=== PATIENT | female | born 1965 | race Caucasian/White ===

== ENCOUNTER 2021-03-28 09:08 | Outpatient (REF) | payer BC, SELFPAY ==
[2021-03-28 15:47] LABS: Hemoglobin A1C 7.3 % (<5.7)
[2021-03-28 15:57] LABS: ALT 38 U/L (14-59); AST 28 U/L (15-37); Albumin 3.7 g/dL (3.4-5.0); Alkaline Phosphatase 55 U/L (46-116); Anion Gap 9.9 mmol/L (3-11); BUN 13 mg/dL (7-18); Bilirubin, Total 0.6 mg/dL (0.2-1.0); CO2 29.1 mmol/L (21.0-32.0); CREATININE 0.9 mg/dL (0.55-1.02); Calcium 8.5 mg/dL (8.5-10.1); Chloride 105 mmol/L (98-107); Glucose 181 mg/dL (74-106); Potassium 3.5 mmol/L (3.5-5.1); Sodium 144 mmol/L (136-145); Total Protein 7.5 g/dL (6.4-8.2)
[2021-03-28 16:30] LABS: Calculated LDL 44 mg/dL (<100); Cholesterol 134 mg/dL (<200); HDL Cholesterol 37 mg/dL (40-60); Triglyceride 268 mg/dL (<150)
== END 2021-03-28 09:09 | disposition home or self-care (01) ==
LOC: NCHCN 09:08
PROVIDERS: PCP Internal Medicine; Visit Provider Physician Assistant
DX: I10 Essential (primary) hypertension (principal); E11.319 Type 2 diabetes mellitus with unspecified diabetic retinopathy without macular edema
CPT/HCPCS: 80053; 80061; 82043; 82570; 83036

== ENCOUNTER 2021-07-04 14:54 | Outpatient (REF) | payer BC, SELFPAY ==
[2021-07-04 21:28] LABS: COMMENT (LAB VIEW ONLY) 144.55 mg/dL; Microalb ug/mg Crea 34.5 ug/mg Cr
== END 2021-07-04 14:55 | disposition home or self-care (01) ==
LOC: NCHCN 14:54
PROVIDERS: PCP Internal Medicine; Visit Provider Physician Assistant
DX: E11.9 Type 2 diabetes mellitus without complications (principal)
CPT/HCPCS: 82043; 82570

== ENCOUNTER 2022-04-03 08:38 | Outpatient (REF) | payer BC, SELFPAY ==
[2022-04-03 20:58] LABS: BUN 17 mg/dL (7-18); Calcium 8.9 mg/dL (8.5-10.1); Chloride 103 mmol/L (98-107); Estimated GFR 56.75 (mL/min/1.73m2); Glucose 178 mg/dL (74-106); Potassium 3.2 mmol/L (3.5-5.1); Sodium 142 mmol/L (136-145)
== END 2022-04-03 08:39 | disposition home or self-care (01) ==
LOC: NCHCN 08:38
PROVIDERS: PCP Internal Medicine; Visit Provider Physician Assistant
DX: I10 Essential (primary) hypertension (principal)
CPT/HCPCS: 80048

== ENCOUNTER 2022-05-08 15:08 | Outpatient (REF) | payer BC, SELFPAY ==
[2022-05-08 21:26] LABS: Potassium 3.5 mmol/L (3.5-5.1)
== END 2022-05-08 15:09 | disposition home or self-care (01) ==
LOC: NCHCN 15:08
PROVIDERS: PCP Internal Medicine; Visit Provider Physician Assistant
DX: E87.6 Hypokalemia (principal)
CPT/HCPCS: 84132

== ENCOUNTER 2023-04-08 10:17 | Outpatient (REF) | payer BC, SELFPAY ==
[2023-04-08 19:09] LABS: HCT 41.9 % (36.0-46.0); HGB 13.9 g/dL (11.2-15.7); MCHC 33.2 % (32.0-36.0); MCV 91 fL (80-95); MPV 10.3 fL (8.0-11.0); Platelet Count 212 10^3/uL (130-400); RBC 4.63 10^6/uL (3.93-5.22); RDW 13.1 % (11.7-14.6); RDW-SD 43.3 fL; WBC 7.24 10^3/uL (4.4-10.8)
[2023-04-08 19:20] LABS: ALT 29 U/L (14-59); AST 24 U/L (15-37); Albumin 3.9 g/dL (3.4-5.0); Alkaline Phosphatase 47 U/L (46-116); Anion Gap 9.6 mmol/L (3-11); BUN 17 mg/dL (7-18); Bilirubin, Total 0.6 mg/dL (0.2-1.0); CO2 29.4 mmol/L (21.0-32.0); Calcium 8.5 mg/dL (8.5-10.1); Chloride 105 mmol/L (98-107); Estimated GFR 64.49 (mL/min/1.73m2); Glucose 189 mg/dL (74-106); Potassium 3.4 mmol/L (3.5-5.1); Sodium 144 mmol/L (136-145); TSH (W/Ref FT4) 3.65 uIU/mL (0.36-3.74)
== END 2023-04-08 10:18 | disposition home or self-care (01) ==
LOC: NCHCN 10:17
PROVIDERS: PCP Internal Medicine; Visit Provider Physician Assistant
DX: I10 Essential (primary) hypertension (principal); R00.2 Palpitations; E11.9 Type 2 diabetes mellitus without complications; Z00.00 Encounter for general adult medical examination without abnormal findings
CPT/HCPCS: 80053; 85027; 84443

== ENCOUNTER 2024-01-15 10:14 | Outpatient (REF) | payer BC, SELFPAY ==
[2024-01-15 19:03] LABS: ALT 42 U/L (14-59); AST 32 U/L (15-37); Albumin 3.6 g/dL (3.4-5.0); Alkaline Phosphatase 57 U/L (46-116); Anion Gap 7.7 mmol/L (3-11); BUN 17 mg/dL (7-18); Bilirubin, Total 0.8 mg/dL (0.2-1.0); CO2 29.3 mmol/L (21.0-32.0); Chloride 104 mmol/L (98-107); Cholesterol 216 mg/dL (<200); Estimated GFR 64.09 (mL/min/1.73m2); Glucose 165 mg/dL (74-106); HDL Cholesterol 41 mg/dL (40-60); Potassium 3.4 mmol/L (3.5-5.1); Sodium 141 mmol/L (136-145); Total Protein 7.8 g/dL (6.4-8.2); Triglyceride 458 mg/dL (<150)
[2024-01-15 19:20] LABS: COMMENT (LAB VIEW ONLY) 14.71 mg/dL; Microalb ug/mg Crea 61.9 ug/mg Cr
[2024-01-15 19:41] LABS: LDL CHOLESTEROL 78 mg/dL (<100)
== END 2024-01-15 10:15 | disposition home or self-care (01) ==
LOC: NCHCN 10:14
PROVIDERS: PCP Internal Medicine; Referring Provider Physician Assistant; Visit Provider Physician Assistant
DX: E11.9 Type 2 diabetes mellitus without complications (principal); E78.5 Hyperlipidemia, unspecified
CPT/HCPCS: 80053; 80061; 83721; 82043; 82570

== ENCOUNTER 2025-01-26 09:24 | Outpatient (REF) | payer BC, SELFPAY ==
[2025-01-26 20:06] LABS: ALT 28 U/L (14-59); AST 23 U/L (15-37); Albumin 3.8 g/dL (3.4-5.0); Alkaline Phosphatase 57 U/L (46-116); Anion Gap 8.5 mmol/L (3-11); BUN 21 mg/dL (7-18); Bilirubin, Total 0.66 mg/dL (0.2-1.0); CO2 28.5 mmol/L (21.0-32.0); Calcium 8.9 mg/dL (8.5-10.1); Chloride 106 mmol/L (98-107); Glucose 171 mg/dL (74-106); Potassium 3.5 mmol/L (3.5-5.1); Sodium 143 mmol/L (136-145); Total Protein 7.8 g/dL (6.4-8.2)
[2025-01-26 20:36] LABS: COMMENT (LAB VIEW ONLY) 96.06 mg/dL; Microalb ug/mg Crea 51.3 ug/mg Cr
== END 2025-01-26 09:25 | disposition home or self-care (01) ==
LOC: NCHCN 09:24
PROVIDERS: PCP Internal Medicine; Visit Provider Physician Assistant
DX: E11.9 Type 2 diabetes mellitus without complications (principal)
CPT/HCPCS: 80053; 82043; 82570

== ENCOUNTER 2025-08-10 19:40 | Outpatient (REF) | payer BC, SELFPAY ==
[2025-08-10 21:43] LABS: Abs Immature Grans 0.12 10^3/uL (0.0-0.06); HCT 38.7 % (36.0-46.0); HGB 12.4 g/dL (11.2-15.7); Immature Grans % 0.6 %; MCH 27.9 pg (27.0-33.0); MCHC 32.0 % (32.0-36.0); MCV 87 fL (80-95); MPV 10.7 fL (8.0-11.0); Platelet Count 157 10^3/uL (130-400); RBC 4.44 10^6/uL (3.93-5.22); RDW 14.4 % (11.7-14.6); RDW-SD 46.1 fL; WBC 18.93 10^3/uL (4.4-10.8)
[2025-08-10 22:17] LABS: WBC >50 HPF (0-5)
[2025-08-10 22:47] LABS: ALT 27 U/L (14-59); AST 16 U/L (15-37); Albumin 3.5 g/dL (3.4-5.0); Alkaline Phosphatase 54 U/L (46-116); Anion Gap 11.6 mmol/L (3-11); BUN 10 mg/dL (7-18); Bilirubin, Total 1.0 mg/dL (0.2-1.0); CO2 26.4 mmol/L (21.0-32.0); Calcium 9.1 mg/dL (8.5-10.1); Chloride 98 mmol/L (98-107); Estimated GFR 56.81 (mL/min/1.73m2); Glucose 294 mg/dL (74-106); Potassium 3.1 mmol/L (3.5-5.1); Sodium 136 mmol/L (136-145); Total Protein 7.9 g/dL (6.4-8.2)
== END 2025-08-10 19:41 | disposition home or self-care (01) ==
LOC: NCHCN 19:40
PROVIDERS: PCP Internal Medicine; Visit Provider Physician Assistant
DX: R10.9 Unspecified abdominal pain (principal)
CPT/HCPCS: 80053; 87077; 81015; 85025; 87086; 87186

== ENCOUNTER 2025-08-17 15:02 | Outpatient (REF) | payer BC, SELFPAY ==
[2025-08-17 20:58] LABS: HCT 34.4 % (36.0-46.0); HGB 11.2 g/dL (11.2-15.7); MCH 28.4 pg (27.0-33.0); MCHC 32.6 % (32.0-36.0); MCV 87 fL (80-95); MPV 10.5 fL (8.0-11.0); Platelet Count 227 10^3/uL (130-400); RBC 3.95 10^6/uL (3.93-5.22); RDW 14.3 % (11.7-14.6); RDW-SD 45.7 fL; WBC 11.78 10^3/uL (4.4-10.8)
[2025-08-17 21:16] LABS: Anion Gap 10.2 mmol/L (3-11); BUN 15 mg/dL (7-18); CO2 26.8 mmol/L (21.0-32.0); Calcium 9.4 mg/dL (8.5-10.1); Chloride 103 mmol/L (98-107); Estimated GFR 72.28 (mL/min/1.73m2); Glucose 197 mg/dL (74-106); Potassium 4.1 mmol/L (3.5-5.1); Sodium 140 mmol/L (136-145)
== END 2025-08-17 15:03 | disposition home or self-care (01) ==
LOC: NCHCN 15:02
PROVIDERS: PCP Internal Medicine; Visit Provider Physician Assistant
DX: N12 Tubulo-interstitial nephritis, not specified as acute or chronic (principal)
CPT/HCPCS: 80048; 85027

== ENCOUNTER 2025-09-02 13:18 | Outpatient (REF) | payer BC, SELFPAY ==
[2025-09-02 19:38] LABS: Abs Immature Grans 0.02 10^3/uL (0.0-0.06); HCT 38.3 % (36.0-46.0); HGB 12.0 g/dL (11.2-15.7); Immature Grans % 0.3 %; MCH 27.6 pg (27.0-33.0); MCHC 31.3 % (32.0-36.0); MCV 88 fL (80-95); MPV 9.8 fL (8.0-11.0); Platelet Count 315 10^3/uL (130-400); RBC 4.35 10^6/uL (3.93-5.22); RDW 14.4 % (11.7-14.6); RDW-SD 46.5 fL; WBC 6.16 10^3/uL (4.4-10.8)
[2025-09-02 19:41] LABS: Potassium 4.0 mmol/L (3.5-5.1)
== END 2025-09-02 13:19 | disposition home or self-care (01) ==
LOC: NCHCN 13:18
PROVIDERS: PCP Internal Medicine; Visit Provider Physician Assistant
DX: E87.6 Hypokalemia (principal); N10 Acute pyelonephritis
CPT/HCPCS: 84132; 85025

== ENCOUNTER 2025-09-15 20:09 | Outpatient (REF) | payer BC, SELFPAY ==
[2025-09-15 19:17] LABS: ESR 28 mm/hr (0-30)
[2025-09-15 19:18] LABS: Abs Immature Grans 0.03 10^3/uL (0.0-0.06); HCT 37.3 % (36.0-46.0); HGB 12.0 g/dL (11.2-15.7); Immature Grans % 0.5 %; MCH 28.0 pg (27.0-33.0); MCHC 32.2 % (32.0-36.0); MCV 87 fL (80-95); MPV 10.3 fL (8.0-11.0); Platelet Count 158 10^3/uL (130-400); RBC 4.29 10^6/uL (3.93-5.22); RDW 14.8 % (11.7-14.6); RDW-SD 47.6 fL; WBC 6.30 10^3/uL (4.4-10.8)
[2025-09-15 19:24] LABS: Anion Gap 7.4 mmol/L (3-11); BUN 20 mg/dL (7-18); CO2 30.6 mmol/L (21.0-32.0); Calcium 8.7 mg/dL (8.5-10.1); Chloride 104 mmol/L (98-107); Estimated GFR 63.70 (mL/min/1.73m2); Glucose 120 mg/dL (74-106); Potassium 3.6 mmol/L (3.5-5.1); Sodium 142 mmol/L (136-145)
[2025-09-15 19:27] LABS: C-Reactive Protein < 0.50 mg/dL (<or=0.5)
== END 2025-09-15 20:10 | disposition home or self-care (01) ==
LOC: NCHCN 20:09
PROVIDERS: PCP Internal Medicine; Visit Provider Physician Assistant
DX: Z87.448 Personal history of other diseases of urinary system (principal)
CPT/HCPCS: 80048; 85652; 85025; 86140